=== PATIENT | female | born 1950 | race Caucasian/White ===

== ENCOUNTER 2022-05-24 09:20 | Outpatient (CLI) | payer OTHER | END 2022-05-24 10:00 | disposition home or self-care (01) | LOC: RAD 09:20 | PROVIDERS: ATTEND Colon & Rectal Surgery | DX: K59.09 Other constipation (principal) ==

== ENCOUNTER 2022-08-25 11:15 | Inpatient (IN) | payer OTHER ==
[~2022-08-25] VITALS: Ht 157.5 cm; Wt 68.9 kg
[2022-08-25] MEDS ORDERED: GLIPIZIDE XL2.5 MG PO (12:40)
[2022-08-25] MEDS ORDERED: SYNTHROID88 MCG PO (12:40)
[2022-08-25] MEDS ORDERED: COZAAR25 MG PO (12:40)
== END 2022-09-03 13:33 | disposition home or self-care (01) | DRG 330 ==
LOC: EDSTATUS 11:15 → ADM 11:15 → SURG 09-01 05:15 → O/R 09-01 05:15 → SURH 09-01 08:30 → SURG 09-01 11:39
PROVIDERS: ADMIT Colon & Rectal Surgery; ATTEND Colon & Rectal Surgery
PROC: 0DBP4ZZ Excision of Rectum, Percutaneous Endoscopic Approach (ICD-10-PCS; 2022-09-01)
PROC: 0DTN4ZZ Resection of Sigmoid Colon, Percutaneous Endoscopic Approach (ICD-10-PCS; principal; 2022-09-01 08:30)
DX: K57.32 Diverticulitis of large intestine without perforation or abscess without bleeding (principal); K92.1 Melena